=== PATIENT | male | born 1955 | race Caucasian/White ===

== ENCOUNTER 2020-11-24 10:50 | Inpatient (IN) ==
[2020-11-24] MEDS ORDERED: SODIUM CHLORIDE 0.9% 1,000 ML IV STA (11:23)
[2020-11-24] MEDS ORDERED: HEPARIN 1,000 UNIT/1 ML VIAL IV STA (11:32)
[2020-11-24] MEDS ORDERED: HEPARIN 5,000 UNIT/1 ML VIAL ONE ×2 (11:46→14:37)
[2020-11-24 11:57] LABS: INR 1.4; PT Patient Result 14.6 SECS (9.8-11.9)
[2020-11-24 12:16] LABS: Alanine Aminotransferase 13 U/L (16-61); Albumin 3.5 G/DL (3.4-5.0); Alkaline Phosphatase 130 U/L (45-117); Aspartate Amino Transferase 44 U/L (0-37); Blood Urea Nitrogen 8 MG/DL (7-18); Calcium 10.8 MG/DL (8.5-10.1); Carbon Dioxide 23 MMOL/L (21-32); Estimated Glom Filtration Rate 71 ML/MIN; Glucose 184 MG/DL (74-106); Osmolality,Calculated 260.9 MOS/KG (273-304); Potassium 4.1 MMOL/L (3.5-5.1); Sodium 129 MMOL/L (136-145); Total Protein 6.9 G/DL (6.4-8.3)
[2020-11-24 12:32] LABS: Basophils % 0.2 % (0.0-0.8); Eosinophils % 0.1 % (0.00-10.9); Hematocrit 54.6 VOL% (42.0-52.0); Immature Granulocytes % 0.8 %; Immature Granulocytes Absolute 0.14 #; Lymphocytes # 1.1 10*3/uL (1.4-4.0); Mean Corpuscular HGB Conc 35.3 GM/DL (32-36); Mean Corpuscular Volume 100.9 FL (87-102); Mean Platelet Volume 10.3 FL (9.6-12.0); Monocytes % 10.7 % (1.7-12.7); NRBC # 0.04 10*3/uL; Neutrophils % 82.2 % (38.7-73.9); Platelet Count 183 T/CUMM (130-400); Red Blood Count 5.41 MC/CUMM (3.8-5.5); Red Cell Distribution Width 14.3 % (9.3-17.3); White Blood Count 18.5 T/CUMM (4-12)
[2020-11-24 12:36] LABS: Hemoglobin 19.3 GM/DL (14.0-18.0)
[2020-11-24] MEDS ORDERED: FAMOTIDINE 20 MG TABLET PO STA (13:13)
[2020-11-24] MEDS ORDERED: ALBUTEROL 2.5 MG/3 ML NEB RESP TX STA (13:13)
[2020-11-24] MEDS ORDERED: ceFAZolin 2,000 MG in SODIUM CHLORIDE 0.9% 100 ML IV STA (13:26)
[2020-11-24] MEDS ORDERED: ACETAMINOPHEN 325 MG TABLET PO PRN (13:30)
[2020-11-24] MEDS ORDERED: ONDANSETRON 4 MG/2 ML VIAL IV PRN (13:30)
[2020-11-24] MEDS ORDERED: fentaNYL 100 MCG/2 ML VIAL ONE (14:18)
[2020-11-24] MEDS ORDERED: LIDOCAINE 2% 5 ML VIAL ONE (14:21)
[2020-11-24] MEDS ORDERED: ROCURONIUM 50 MG/5 ML VIAL IV ONE (14:21)
[2020-11-24] MEDS ORDERED: ETOMIDATE 40 MG/20 ML VIAL IV ONE ×2 (14:21→17:13)
[2020-11-24] MEDS ORDERED: ceFAZolin 1,000 MG VIAL ONE (14:25)
[2020-11-24] MEDS ORDERED: PHENYLEPHRINE 10 MG/1 ML VIAL IV ONE ×2 (15:13→15:18)
[2020-11-24] MEDS ORDERED: TISSUE ADHESIVE 1 EACH APPLICATOR TOP ONE (16:15)
[2020-11-24] MEDS ORDERED: ONDANSETRON 4 MG/2 ML VIAL ONE (16:24)
[2020-11-24] MEDS ORDERED: GLYCOPYRROLATE 0.4 MG/2 ML VIAL ONE (16:24)
[2020-11-24] MEDS ORDERED: NEOSTIGMINE 10 MG/10 ML VIAL ONE (16:24)
[2020-11-24] MEDS ORDERED: SEVOFLURANE 1 UNIT/15 MINUTE INH ONE ×9 (16:24→17:13)
[2020-11-24] MEDS ORDERED: LACTATED RINGERS 1,000 ML IV ONE (16:25)
[2020-11-24] MEDS ORDERED: SODIUM CHLORIDE 0.9% 250 ML IV ONE (16:25)
[2020-11-24] MEDS ORDERED: HEPARIN 10,000 UNIT/10 ML VIAL ONE (16:26)
[2020-11-24] MEDS: LACTATED RINGERS 1,000 ML IV SCH (17:43)
[2020-11-24 18:29] LABS: Basophils % 0.2 % (0.0-0.8); Eosinophils % 0.1 % (0.00-10.9); Hematocrit 53.7 VOL% (42.0-52.0); Hemoglobin 18.5 GM/DL (14.0-18.0); Immature Granulocytes % 0.7 %; Lymphocytes # 1.6 10*3/uL (1.4-4.0); Lymphocytes % 10.7 % (21.2-54.2); Mean Corpuscular HGB Conc 34.5 GM/DL (32-36); Mean Corpuscular Volume 101.7 FL (87-102); Mean Platelet Volume 10.5 FL (9.6-12.0); Monocytes % 8.9 % (1.7-12.7); NRBC # 0.03 10*3/uL; Neutrophils % 79.4 % (38.7-73.9); Platelet Count 177 T/CUMM (130-400); Red Blood Count 5.28 MC/CUMM (3.8-5.5); Red Cell Distribution Width 14.4 % (9.3-17.3); White Blood Count 15.2 T/CUMM (4-12)
[2020-11-24] MEDS: ALUMINUM/MAGNES/SIMETH MAX STR 30 ML UDCUP PO PRN (20:47)
[2020-11-25] MEDS: LACTATED RINGERS 1,000 ML IV SCH ×5 (01:57→19:03)
[2020-11-25 06:00] LABS: Basophils % 0.2 % (0.0-0.8); Hematocrit 52.1 VOL% (42.0-52.0); Immature Granulocytes % 0.7 %; Immature Granulocytes Absolute 0.11 #; Lymphocytes # 1.6 10*3/uL (1.4-4.0); Lymphocytes % 10.5 % (21.2-54.2); Mean Corpuscular HGB Conc 34.5 GM/DL (32-36); Mean Corpuscular Volume 102.8 FL (87-102); Monocytes % 9.3 % (1.7-12.7); Neutrophils % 79.3 % (38.7-73.9); Platelet Count 121 T/CUMM (130-400); Red Blood Count 5.07 MC/CUMM (3.8-5.5); Red Cell Distribution Width 14.4 % (9.3-17.3); White Blood Count 15.1 T/CUMM (4-12)
[2020-11-25 06:19] LABS: Macrocytosis Slight
[2020-11-25 06:20] LABS: Hypochromasia 1+; Platelet Estimate Decreased
[2020-11-25 06:22] LABS: Calcium 8.2 MG/DL (8.5-10.1); Osmolality,Calculated 261.7 MOS/KG (273-304); Potassium 4.2 MMOL/L (3.5-5.1)
[2020-11-25] MEDS: ASPIRIN CHEW 81 MG TABLET PO SCH (08:10)
[2020-11-25] MEDS ORDERED: CLOPIDOGREL 75 MG TABLET PO SCH ×2 (09:00→10:00)
[2020-11-25] MEDS ORDERED: PANTOPRAZOLE 40 MG TABLET PO SCH ×2 (09:00→10:00)
[2020-11-25] MEDS: ROSUVASTATIN 10 MG TABLET PO SCH (10:24)
[2020-11-25] MEDS: METOPROLOL TARTRATE 25 MG TABLET PO SCH ×2 (10:24→20:51)
[2020-11-25] MEDS: cilostazoL 100 MG TABLET PO SCH ×2 (10:24→20:51)
[2020-11-25] MEDS: ENOXAPARIN 40 MG/0.4 ML SYRINGE SUBCUT SCH (10:24)
[2020-11-25] MEDS: ALUMINUM/MAGNES/SIMETH MAX STR 30 ML UDCUP PO PRN ×2 (12:00→20:53)
[2020-11-26] MEDS: LACTATED RINGERS 1,000 ML IV SCH (05:09)
[2020-11-26] MEDS: ALUMINUM/MAGNES/SIMETH MAX STR 30 ML UDCUP PO PRN (07:33)
[2020-11-26] MEDS: PANTOPRAZOLE 40 MG TABLET PO SCH (10:34)
[2020-11-26] MEDS: ENOXAPARIN 40 MG/0.4 ML SYRINGE SUBCUT SCH (10:34)
[2020-11-26] MEDS: cilostazoL 100 MG TABLET PO SCH ×2 (10:35→20:17)
[2020-11-26] MEDS: ASPIRIN CHEW 81 MG TABLET PO SCH (10:35)
[2020-11-26] MEDS: ROSUVASTATIN 10 MG TABLET PO SCH (10:35)
[2020-11-26] MEDS: CLOPIDOGREL 75 MG TABLET PO SCH (10:35)
[2020-11-26] MEDS: METOPROLOL TARTRATE 25 MG TABLET PO SCH ×2 (10:35→20:17)
[2020-11-27] MEDS: CLOPIDOGREL 75 MG TABLET PO SCH (10:24)
[2020-11-27] MEDS: METOPROLOL TARTRATE 25 MG TABLET PO SCH ×2 (10:24→20:46)
[2020-11-27] MEDS: ASPIRIN CHEW 81 MG TABLET PO SCH (10:24)
[2020-11-27] MEDS: cilostazoL 100 MG TABLET PO SCH ×2 (10:24→20:46)
[2020-11-27] MEDS: PANTOPRAZOLE 40 MG TABLET PO SCH (10:25)
[2020-11-27] MEDS: ENOXAPARIN 40 MG/0.4 ML SYRINGE SUBCUT SCH (10:27)
[2020-11-27] MEDS: ROSUVASTATIN 10 MG TABLET PO SCH (10:32)
[2020-11-27] MEDS: HYDROmorphone 2 MG/1 ML VIAL IV PRN (15:50)
[2020-11-28] MEDS: cilostazoL 100 MG TABLET PO SCH ×2 (08:14→20:44)
[2020-11-28] MEDS: CLOPIDOGREL 75 MG TABLET PO SCH (08:14)
[2020-11-28] MEDS: ASPIRIN CHEW 81 MG TABLET PO SCH (08:14)
[2020-11-28] MEDS: ROSUVASTATIN 10 MG TABLET PO SCH (08:14)
[2020-11-28] MEDS: METOPROLOL TARTRATE 25 MG TABLET PO SCH ×2 (08:14→20:44)
[2020-11-28] MEDS: PANTOPRAZOLE 40 MG TABLET PO SCH (08:14)
[2020-11-28] MEDS: ENOXAPARIN 40 MG/0.4 ML SYRINGE SUBCUT SCH (10:23)
[2020-11-28] MEDS: HYDROmorphone 2 MG/1 ML VIAL IV PRN (20:45)
[2020-11-29] MEDS: CLOPIDOGREL 75 MG TABLET PO SCH (08:36)
[2020-11-29] MEDS: ASPIRIN CHEW 81 MG TABLET PO SCH (08:36)
[2020-11-29] MEDS: PANTOPRAZOLE 40 MG TABLET PO SCH (08:36)
[2020-11-29] MEDS: METOPROLOL TARTRATE 25 MG TABLET PO SCH ×2 (08:36→20:51)
[2020-11-29] MEDS: ROSUVASTATIN 10 MG TABLET PO SCH (08:36)
[2020-11-29] MEDS: cilostazoL 100 MG TABLET PO SCH ×2 (08:36→20:50)
[2020-11-29] MEDS: ENOXAPARIN 40 MG/0.4 ML SYRINGE SUBCUT SCH (12:19)
[2020-11-30] MEDS: PANTOPRAZOLE 40 MG TABLET PO SCH (08:50)
[2020-11-30] MEDS: ROSUVASTATIN 10 MG TABLET PO SCH (08:50)
[2020-11-30] MEDS: CLOPIDOGREL 75 MG TABLET PO SCH (08:51)
[2020-11-30] MEDS: METOPROLOL TARTRATE 25 MG TABLET PO SCH ×2 (08:51→21:40)
[2020-11-30] MEDS: ASPIRIN CHEW 81 MG TABLET PO SCH (08:51)
[2020-11-30] MEDS: cilostazoL 100 MG TABLET PO SCH ×2 (08:51→21:40)
[2020-11-30 10:31] LABS: Hematocrit 42.5 VOL% (42.0-52.0); Hemoglobin 14.9 GM/DL (14.0-18.0)
[2020-11-30 10:54] LABS: Basophils % 0.2 % (0.0-0.8); Eosinophils % 0.1 % (0.00-10.9); Hematocrit 41.8 VOL% (42.0-52.0); Immature Granulocytes Absolute 0.13 #; Lymphocytes # 1.1 10*3/uL (1.4-4.0); Lymphocytes % 8.4 % (21.2-54.2); Mean Corpuscular HGB Conc 35.9 GM/DL (32-36); Mean Corpuscular Volume 99.3 FL (87-102); Mean Platelet Volume 11.1 FL (9.6-12.0); Monocytes % 8.6 % (1.7-12.7); Neutrophils % 81.7 % (38.7-73.9); Platelet Count 193 T/CUMM (130-400); Red Blood Count 4.21 MC/CUMM (3.8-5.5); Red Cell Distribution Width 13.2 % (9.3-17.3); White Blood Count 12.6 T/CUMM (4-12)
[2020-11-30 11:03] LABS: Calcium 8.6 MG/DL (8.5-10.1); Osmolality,Calculated 245.9 MOS/KG (273-304); Potassium 3.8 MMOL/L (3.5-5.1)
[2020-11-30] MEDS: ENOXAPARIN 40 MG/0.4 ML SYRINGE SUBCUT SCH (13:06)
[2020-12-01] MEDS: PANTOPRAZOLE 40 MG TABLET PO SCH (08:40)
[2020-12-01] MEDS: cilostazoL 100 MG TABLET PO SCH ×2 (08:40→22:06)
[2020-12-01] MEDS: METOPROLOL TARTRATE 25 MG TABLET PO SCH ×2 (08:41→22:06)
[2020-12-01] MEDS: ROSUVASTATIN 10 MG TABLET PO SCH (08:41)
[2020-12-01] MEDS: ASPIRIN CHEW 81 MG TABLET PO SCH (08:41)
[2020-12-01] MEDS: CLOPIDOGREL 75 MG TABLET PO SCH (08:41)
[2020-12-01] MEDS: DOCUSATE SODIUM 100 MG CAPSULE PO SCH (08:41)
[2020-12-01] MEDS: ENOXAPARIN 40 MG/0.4 ML SYRINGE SUBCUT SCH (12:27)
[2020-12-02] MEDS ORDERED: ceFAZolin 1,000 MG in SYRINGE 1 EACH IV ONE (06:00)
[2020-12-02 08:11] LABS: Calcium 8.2 MG/DL (8.5-10.1); Osmolality,Calculated 248.5 MOS/KG (273-304); Potassium 3.9 MMOL/L (3.5-5.1)
[2020-12-02] MEDS: ROSUVASTATIN 10 MG TABLET PO SCH (10:19)
[2020-12-02] MEDS: ASPIRIN CHEW 81 MG TABLET PO SCH (10:19)
[2020-12-02] MEDS: PANTOPRAZOLE 40 MG TABLET PO SCH (10:20)
[2020-12-02] MEDS: CLOPIDOGREL 75 MG TABLET PO SCH (10:20)
[2020-12-02] MEDS: METOPROLOL TARTRATE 25 MG TABLET PO SCH ×2 (10:20→20:06)
[2020-12-02] MEDS: cilostazoL 100 MG TABLET PO SCH ×2 (10:21→20:07)
[2020-12-02] MEDS: DOCUSATE SODIUM 100 MG CAPSULE PO SCH (10:24)
[2020-12-02] MEDS: SODIUM CHLOR 0.9% KCL 20 MEQ 20 MEQ/1,000 ML BAG IV SCH ×2 (12:25→21:52)
[2020-12-02 16:33] LABS: Calcium 8.1 MG/DL (8.5-10.1); Osmolality,Calculated 248.6 MOS/KG (273-304); Potassium 3.8 MMOL/L (3.5-5.1)
[2020-12-02] MEDS: ZINC OXIDE PASTE 113 GM TUBE TOP SCH (20:06)
[2020-12-03] MEDS: SODIUM CHLOR 0.9% KCL 20 MEQ 20 MEQ/1,000 ML BAG IV SCH ×2 (05:45→19:48)
[2020-12-03 05:50] LABS: Osmolality,Calculated 257.8 MOS/KG (273-304); Potassium 4.1 MMOL/L (3.5-5.1)
[2020-12-03] MEDS ORDERED: ceFAZolin 1,000 MG in SYRINGE 1 EACH IV ONE (08:45)
[2020-12-03] MEDS: ZINC OXIDE PASTE 113 GM TUBE TOP SCH ×2 (08:55→20:20)
[2020-12-03] MEDS: ASPIRIN CHEW 81 MG TABLET PO SCH (08:55)
[2020-12-03] MEDS: ROSUVASTATIN 10 MG TABLET PO SCH (08:55)
[2020-12-03] MEDS: METOPROLOL TARTRATE 25 MG TABLET PO SCH ×2 (08:55→20:20)
[2020-12-03] MEDS: cilostazoL 100 MG TABLET PO SCH ×2 (08:55→20:20)
[2020-12-03] MEDS: CLOPIDOGREL 75 MG TABLET PO SCH (08:55)
[2020-12-03] MEDS: DOCUSATE SODIUM 100 MG CAPSULE PO SCH (08:55)
[2020-12-03] MEDS: PANTOPRAZOLE 40 MG TABLET PO SCH (08:56)
[2020-12-03] MEDS ORDERED: LACTATED RINGERS 1,000 ML IV SCH (09:00)
[2020-12-03] MEDS ORDERED: MIDAZOLAM 2 MG/2 ML VIAL ONE (09:39)
[2020-12-03] MEDS ORDERED: LIDOCAINE 2% 5 ML VIAL ONE (09:39)
[2020-12-03] MEDS ORDERED: propofoL 200 MG/20 ML VIAL IV ONE (09:39)
[2020-12-03] MEDS ORDERED: fentaNYL 100 MCG/2 ML VIAL ONE (09:39)
[2020-12-03] MEDS ORDERED: DEXAMETHASONE 4 MG/1 ML VIAL ONE (09:43)
[2020-12-03] MEDS ORDERED: ROPIVACAINE 0.5% 30 ML VIAL ONE (09:43)
[2020-12-03] MEDS ORDERED: FAMOTIDINE 20 MG/2 ML VIAL IV ONE (10:07)
[2020-12-03] MEDS ORDERED: SUCCINYLCHOLINE 200 MG/10 ML VIAL ONE (10:10)
[2020-12-03] MEDS ORDERED: ETOMIDATE 40 MG/20 ML VIAL IV ONE (10:10)
[2020-12-03] MEDS ORDERED: KETOROLAC 30 MG/1 ML VIAL ONE (10:44)
[2020-12-03] MEDS ORDERED: SODIUM CHLORIDE 0.9% 250 ML IV ONE (10:45)
[2020-12-03] MEDS ORDERED: PHENYLEPHRINE 10 MG/1 ML VIAL IV ONE (10:46)
[2020-12-03] MEDS ORDERED: ONDANSETRON 4 MG/2 ML VIAL ONE (10:58)
[2020-12-03] MEDS ORDERED: SEVOFLURANE 1 UNIT/15 MINUTE INH ONE (11:34)
[2020-12-03] MEDS ORDERED: NALOXONE 0.4 MG/ML VIAL IV PRN (11:35)
[2020-12-03] MEDS: HYDROmorphone PCA 30 MG/30 ML SYRINGE IV SCH (13:08)
[2020-12-03] MEDS: KETOROLAC 10 MG TABLET PO SCH ×3 (13:29→23:30)
[2020-12-04] MEDS: SODIUM CHLOR 0.9% KCL 20 MEQ 20 MEQ/1,000 ML BAG IV SCH ×2 (05:14→21:30)
[2020-12-04] MEDS: KETOROLAC 10 MG TABLET PO SCH ×3 (05:15→17:45)
[2020-12-04 06:34] LABS: Basophils % 0.2 % (0.0-0.8); Eosinophils % 0.1 % (0.00-10.9); Hemoglobin 12.9 GM/DL (14.0-18.0); Immature Granulocytes % 1.2 %; Immature Granulocytes Absolute 0.19 #; Lymphocytes # 1.6 10*3/uL (1.4-4.0); Lymphocytes % 9.5 % (21.2-54.2); Mean Corpuscular HGB Conc 33.9 GM/DL (32-36); Mean Corpuscular Volume 103.3 FL (87-102); Mean Platelet Volume 9.8 FL (9.6-12.0); Monocytes % 9.5 % (1.7-12.7); Neutrophils % 79.5 % (38.7-73.9); Platelet Count 317 T/CUMM (130-400); Red Blood Count 3.68 MC/CUMM (3.8-5.5); Red Cell Distribution Width 13.8 % (9.3-17.3); White Blood Count 16.5 T/CUMM (4-12)
[2020-12-04 06:56] LABS: Calcium 7.8 MG/DL (8.5-10.1); Osmolality,Calculated 265.4 MOS/KG (273-304); Potassium 4.1 MMOL/L (3.5-5.1)
[2020-12-04] MEDS: ASPIRIN CHEW 81 MG TABLET PO SCH (08:59)
[2020-12-04] MEDS: DOCUSATE SODIUM 100 MG CAPSULE PO SCH (08:59)
[2020-12-04] MEDS: CLOPIDOGREL 75 MG TABLET PO SCH (09:00)
[2020-12-04] MEDS: PANTOPRAZOLE 40 MG TABLET PO SCH (09:00)
[2020-12-04] MEDS: METOPROLOL TARTRATE 25 MG TABLET PO SCH ×2 (09:00→21:30)
[2020-12-04] MEDS: ZINC OXIDE PASTE 113 GM TUBE TOP SCH ×2 (09:00→21:30)
[2020-12-04] MEDS: cilostazoL 100 MG TABLET PO SCH ×2 (09:00→21:30)
[2020-12-04] MEDS: ROSUVASTATIN 10 MG TABLET PO SCH (09:00)
[2020-12-04] MEDS: ENOXAPARIN 40 MG/0.4 ML SYRINGE SUBCUT SCH (12:00)
[2020-12-04] MEDS: HYDROmorphone PCA 30 MG/30 ML SYRINGE IV SCH (14:26)
[2020-12-05] MEDS: KETOROLAC 10 MG TABLET PO SCH ×4 (00:55→17:33)
[2020-12-05] MEDS: SODIUM CHLOR 0.9% KCL 20 MEQ 20 MEQ/1,000 ML BAG IV SCH (00:57)
[2020-12-05] MEDS: PANTOPRAZOLE 40 MG TABLET PO SCH (09:28)
[2020-12-05] MEDS: ASPIRIN CHEW 81 MG TABLET PO SCH (09:28)
[2020-12-05] MEDS: METOPROLOL TARTRATE 25 MG TABLET PO SCH ×2 (09:29→21:29)
[2020-12-05] MEDS: CLOPIDOGREL 75 MG TABLET PO SCH (09:29)
[2020-12-05] MEDS: ROSUVASTATIN 10 MG TABLET PO SCH (09:30)
[2020-12-05] MEDS: ZINC OXIDE PASTE 113 GM TUBE TOP SCH ×2 (09:30→22:46)
[2020-12-05] MEDS: cilostazoL 100 MG TABLET PO SCH ×2 (09:30→21:28)
[2020-12-05] MEDS: DOCUSATE SODIUM 100 MG CAPSULE PO SCH (09:30)
[2020-12-05] MEDS: ENOXAPARIN 40 MG/0.4 ML SYRINGE SUBCUT SCH (12:07)
[2020-12-05] MEDS: HYDROmorphone PCA 30 MG/30 ML SYRINGE IV SCH (13:57)
[2020-12-06] MEDS: KETOROLAC 10 MG TABLET PO SCH ×5 (00:53→23:15)
[2020-12-06] MEDS: SODIUM CHLOR 0.9% KCL 20 MEQ 20 MEQ/1,000 ML BAG IV SCH (06:31)
[2020-12-06] MEDS ORDERED: HYDROmorphone 2 MG/1 ML VIAL IV PRN (08:50)
[2020-12-06] MEDS: ASPIRIN CHEW 81 MG TABLET PO SCH (10:06)
[2020-12-06] MEDS: PANTOPRAZOLE 40 MG TABLET PO SCH (10:07)
[2020-12-06] MEDS: CLOPIDOGREL 75 MG TABLET PO SCH (10:07)
[2020-12-06] MEDS: METOPROLOL TARTRATE 25 MG TABLET PO SCH ×2 (10:07→20:05)
[2020-12-06] MEDS: cilostazoL 100 MG TABLET PO SCH ×2 (10:07→20:04)
[2020-12-06] MEDS: DOCUSATE SODIUM 100 MG CAPSULE PO SCH (10:07)
[2020-12-06] MEDS: ROSUVASTATIN 10 MG TABLET PO SCH (10:07)
[2020-12-06] MEDS: ZINC OXIDE PASTE 113 GM TUBE TOP SCH ×2 (10:08→20:05)
[2020-12-06] MEDS: PIPERACILLIN/TAZOBACTAM 3,375 MG in SODIUM CHLORIDE 0.9% 100 ML IV SCH ×2 (11:01→17:18)
[2020-12-06] MEDS: ENOXAPARIN 40 MG/0.4 ML SYRINGE SUBCUT SCH (11:50)
[2020-12-06] MEDS: HYDROmorphone PCA 30 MG/30 ML SYRINGE IV SCH (12:24)
[2020-12-07] MEDS: PIPERACILLIN/TAZOBACTAM 3,375 MG in SODIUM CHLORIDE 0.9% 100 ML IV SCH ×3 (00:48→17:10)
[2020-12-07] MEDS: KETOROLAC 10 MG TABLET PO SCH ×4 (05:37→23:15)
[2020-12-07 06:21] LABS: Basophils % 0.2 % (0.0-0.8); Eosinophils % 0.2 % (0.00-10.9); Hematocrit 32.2 VOL% (42.0-52.0); Hemoglobin 11.3 GM/DL (14.0-18.0); Immature Granulocytes % 1.1 %; Immature Granulocytes Absolute 0.14 #; Lymphocytes % 7.6 % (21.2-54.2); Mean Corpuscular HGB Conc 35.1 GM/DL (32-36); Mean Corpuscular Volume 98.5 FL (87-102); Mean Platelet Volume 9.5 FL (9.6-12.0); Neutrophils % 82.9 % (38.7-73.9); Platelet Count 394 T/CUMM (130-400); Red Blood Count 3.27 MC/CUMM (3.8-5.5); Red Cell Distribution Width 13.2 % (9.3-17.3); White Blood Count 12.8 T/CUMM (4-12)
[2020-12-07 06:48] LABS: Calcium 7.5 MG/DL (8.5-10.1); Osmolality,Calculated 259.8 MOS/KG (273-304); Potassium 3.7 MMOL/L (3.5-5.1)
[2020-12-07] MEDS: CLOPIDOGREL 75 MG TABLET PO SCH (09:39)
[2020-12-07] MEDS: cilostazoL 100 MG TABLET PO SCH ×2 (09:39→20:23)
[2020-12-07] MEDS: METOPROLOL TARTRATE 25 MG TABLET PO SCH ×2 (09:39→20:23)
[2020-12-07] MEDS: ASPIRIN CHEW 81 MG TABLET PO SCH (09:39)
[2020-12-07] MEDS: ROSUVASTATIN 10 MG TABLET PO SCH (09:39)
[2020-12-07] MEDS: DOCUSATE SODIUM 100 MG CAPSULE PO SCH (09:39)
[2020-12-07] MEDS: PANTOPRAZOLE 40 MG TABLET PO SCH (09:39)
[2020-12-07] MEDS: ENOXAPARIN 40 MG/0.4 ML SYRINGE SUBCUT SCH (12:09)
[2020-12-07] MEDS: ZINC OXIDE PASTE 113 GM TUBE TOP SCH ×2 (12:11→20:23)
[2020-12-08] MEDS: PIPERACILLIN/TAZOBACTAM 3,375 MG in SODIUM CHLORIDE 0.9% 100 ML IV SCH ×3 (01:15→16:33)
[2020-12-08] MEDS: KETOROLAC 10 MG TABLET PO SCH (05:30)
[2020-12-08] MEDS: CLOPIDOGREL 75 MG TABLET PO SCH (09:42)
[2020-12-08] MEDS: DOCUSATE SODIUM 100 MG CAPSULE PO SCH (09:42)
[2020-12-08] MEDS: PANTOPRAZOLE 40 MG TABLET PO SCH (09:42)
[2020-12-08] MEDS: METOPROLOL TARTRATE 25 MG TABLET PO SCH ×2 (09:45→20:27)
[2020-12-08] MEDS: cilostazoL 100 MG TABLET PO SCH ×2 (09:46→20:27)
[2020-12-08] MEDS: ASPIRIN CHEW 81 MG TABLET PO SCH (09:46)
[2020-12-08] MEDS: ZINC OXIDE PASTE 113 GM TUBE TOP SCH ×2 (09:47→20:27)
[2020-12-08] MEDS: ROSUVASTATIN 10 MG TABLET PO SCH (09:47)
[2020-12-08] MEDS: ENOXAPARIN 40 MG/0.4 ML SYRINGE SUBCUT SCH (11:20)
[2020-12-09] MEDS: PIPERACILLIN/TAZOBACTAM 3,375 MG in SODIUM CHLORIDE 0.9% 100 ML IV SCH ×3 (02:22→17:13)
[2020-12-09 10:07] LABS: Basophils % 0.3 % (0.0-0.8); Eosinophils % 0.2 % (0.00-10.9); Immature Granulocytes % 0.5 %; Immature Granulocytes Absolute 0.06 #; Lymphocytes # 1.2 10*3/uL (1.4-4.0); Lymphocytes % 10.7 % (21.2-54.2); Mean Corpuscular HGB Conc 34.2 GM/DL (32-36); Mean Corpuscular Volume 101.3 FL (87-102); Mean Platelet Volume 9.3 FL (9.6-12.0); Monocytes % 7.6 % (1.7-12.7); Neutrophils % 80.7 % (38.7-73.9); Platelet Count 552 T/CUMM (130-400); Red Blood Count 3.75 MC/CUMM (3.8-5.5); Red Cell Distribution Width 14.1 % (9.3-17.3); White Blood Count 11.5 T/CUMM (4-12)
[2020-12-09] MEDS: cilostazoL 100 MG TABLET PO SCH ×2 (10:32→21:11)
[2020-12-09] MEDS: CLOPIDOGREL 75 MG TABLET PO SCH (10:32)
[2020-12-09] MEDS: DOCUSATE SODIUM 100 MG CAPSULE PO SCH (10:32)
[2020-12-09] MEDS: METOPROLOL TARTRATE 25 MG TABLET PO SCH ×2 (10:32→21:11)
[2020-12-09] MEDS: PANTOPRAZOLE 40 MG TABLET PO SCH (10:32)
[2020-12-09] MEDS: ASPIRIN CHEW 81 MG TABLET PO SCH (10:32)
[2020-12-09] MEDS: ROSUVASTATIN 10 MG TABLET PO SCH (10:32)
[2020-12-09] MEDS: ZINC OXIDE PASTE 113 GM TUBE TOP SCH ×2 (10:33→21:12)
[2020-12-09] MEDS: ENOXAPARIN 40 MG/0.4 ML SYRINGE SUBCUT SCH (10:33)
[2020-12-09 10:44] LABS: Calcium 8.1 MG/DL (8.5-10.1); Osmolality,Calculated 263.4 MOS/KG (273-304); Potassium 3.9 MMOL/L (3.5-5.1)
[2020-12-10] MEDS: PIPERACILLIN/TAZOBACTAM 3,375 MG in SODIUM CHLORIDE 0.9% 100 ML IV SCH ×3 (00:30→17:43)
[2020-12-10] MEDS ORDERED: LIDOCAINE 2% 5 ML VIAL ONE (09:32)
[2020-12-10] MEDS ORDERED: propofoL 200 MG/20 ML VIAL IV ONE ×2 (09:32→11:55)
[2020-12-10] MEDS ORDERED: fentaNYL 100 MCG/2 ML VIAL ONE (09:33)
[2020-12-10] MEDS ORDERED: MIDAZOLAM 2 MG/2 ML VIAL ONE (09:33)
[2020-12-10] MEDS ORDERED: SUCCINYLCHOLINE 200 MG/10 ML VIAL ONE (09:40)
[2020-12-10] MEDS: METOPROLOL TARTRATE 25 MG TABLET PO SCH ×2 (09:59→21:17)
[2020-12-10] MEDS: CLOPIDOGREL 75 MG TABLET PO SCH (10:29)
[2020-12-10] MEDS: ASPIRIN CHEW 81 MG TABLET PO SCH (10:29)
[2020-12-10] MEDS: DOCUSATE SODIUM 100 MG CAPSULE PO SCH (10:29)
[2020-12-10] MEDS: ROSUVASTATIN 10 MG TABLET PO SCH (10:29)
[2020-12-10] MEDS: ZINC OXIDE PASTE 113 GM TUBE TOP SCH ×2 (10:30→21:17)
[2020-12-10] MEDS: PANTOPRAZOLE 40 MG TABLET PO SCH (10:30)
[2020-12-10] MEDS: ENOXAPARIN 40 MG/0.4 ML SYRINGE SUBCUT SCH (10:30)
[2020-12-10] MEDS: cilostazoL 100 MG TABLET PO SCH ×2 (10:30→21:17)
[2020-12-10] MEDS ORDERED: DEXAMETHASONE 4 MG/1 ML VIAL ONE (10:46)
[2020-12-10] MEDS ORDERED: BUPIVACAINE 0.5% 50 ML VIAL ONE (10:46)
[2020-12-10] MEDS ORDERED: ETOMIDATE 40 MG/20 ML VIAL IV ONE (11:55)
[2020-12-10] MEDS ORDERED: SEVOFLURANE 1 UNIT/15 MINUTE INH ONE ×5 (11:56→12:28)
[2020-12-10] MEDS ORDERED: PHENYLEPHRINE DRIP 20 MG/250 ML PREMIX IV ONE (12:08)
[2020-12-10] MEDS ORDERED: NEOSTIGMINE 10 MG/10 ML VIAL ONE (12:11)
[2020-12-10] MEDS ORDERED: GLYCOPYRROLATE 0.4 MG/2 ML VIAL ONE (12:11)
[2020-12-10] MEDS ORDERED: NALOXONE 0.4 MG/ML VIAL IV PRN (12:23)
[2020-12-10] MEDS ORDERED: HYDROmorphone PCA 30 MG/30 ML SYRINGE IV SCH (12:30)
[2020-12-11] MEDS: PIPERACILLIN/TAZOBACTAM 3,375 MG in SODIUM CHLORIDE 0.9% 100 ML IV SCH ×3 (01:35→18:07)
[2020-12-11 05:22] LABS: Basophils % 0.3 % (0.0-0.8); Eosinophils % 0.3 % (0.00-10.9); Hematocrit 34.8 VOL% (42.0-52.0); Hemoglobin 11.7 GM/DL (14.0-18.0); Immature Granulocytes % 0.8 %; Immature Granulocytes Absolute 0.09 #; Lymphocytes # 2.7 10*3/uL (1.4-4.0); Lymphocytes % 22.6 % (21.2-54.2); Mean Corpuscular HGB Conc 33.6 GM/DL (32-36); Mean Corpuscular Volume 102.4 FL (87-102); Mean Platelet Volume 9.2 FL (9.6-12.0); Monocytes % 9.7 % (1.7-12.7); Neutrophils % 66.3 % (38.7-73.9); Platelet Count 542 T/CUMM (130-400); White Blood Count 11.9 T/CUMM (4-12)
[2020-12-11 05:42] LABS: Calcium 8.1 MG/DL (8.5-10.1); Osmolality,Calculated 266.2 MOS/KG (273-304); Potassium 4.2 MMOL/L (3.5-5.1)
[2020-12-11] MEDS: cilostazoL 100 MG TABLET PO SCH (09:32)
[2020-12-11] MEDS: METOPROLOL TARTRATE 25 MG TABLET PO SCH ×2 (09:32→20:41)
[2020-12-11] MEDS: ROSUVASTATIN 10 MG TABLET PO SCH (09:32)
[2020-12-11] MEDS: CLOPIDOGREL 75 MG TABLET PO SCH (09:32)
[2020-12-11] MEDS: ASPIRIN CHEW 81 MG TABLET PO SCH (09:32)
[2020-12-11] MEDS: DOCUSATE SODIUM 100 MG CAPSULE PO SCH (09:32)
[2020-12-11] MEDS: PANTOPRAZOLE 40 MG TABLET PO SCH (10:28)
[2020-12-11] MEDS: ZINC OXIDE PASTE 113 GM TUBE TOP SCH ×2 (10:28→20:41)
[2020-12-11] MEDS: ENOXAPARIN 40 MG/0.4 ML SYRINGE SUBCUT SCH (10:29)
[2020-12-12] MEDS: PIPERACILLIN/TAZOBACTAM 3,375 MG in SODIUM CHLORIDE 0.9% 100 ML IV SCH ×3 (00:32→19:00)
[2020-12-12] MEDS: PANTOPRAZOLE 40 MG TABLET PO SCH (09:31)
[2020-12-12] MEDS: DOCUSATE SODIUM 100 MG CAPSULE PO SCH (09:31)
[2020-12-12] MEDS: ASPIRIN CHEW 81 MG TABLET PO SCH (09:31)
[2020-12-12] MEDS: METOPROLOL TARTRATE 25 MG TABLET PO SCH ×2 (09:31→20:58)
[2020-12-12] MEDS: ROSUVASTATIN 10 MG TABLET PO SCH (09:31)
[2020-12-12] MEDS: CLOPIDOGREL 75 MG TABLET PO SCH (09:32)
[2020-12-12] MEDS: ZINC OXIDE PASTE 113 GM TUBE TOP SCH ×2 (09:36→20:58)
[2020-12-12] MEDS: ENOXAPARIN 40 MG/0.4 ML SYRINGE SUBCUT SCH (11:53)
[2020-12-13] MEDS: PIPERACILLIN/TAZOBACTAM 3,375 MG in SODIUM CHLORIDE 0.9% 100 ML IV SCH (01:10)
[2020-12-13] MEDS ORDERED: FUROSEMIDE 20 MG TABLET PO ONE (07:30)
[2020-12-13] MEDS: ASPIRIN CHEW 81 MG TABLET PO SCH (09:01)
[2020-12-13] MEDS: ROSUVASTATIN 10 MG TABLET PO SCH (09:01)
[2020-12-13] MEDS: CLOPIDOGREL 75 MG TABLET PO SCH (09:01)
[2020-12-13] MEDS: DOCUSATE SODIUM 100 MG CAPSULE PO SCH (09:01)
[2020-12-13] MEDS: METOPROLOL TARTRATE 25 MG TABLET PO SCH ×2 (09:01→20:53)
[2020-12-13] MEDS: ZINC OXIDE PASTE 113 GM TUBE TOP SCH ×2 (09:02→23:25)
[2020-12-13] MEDS: PANTOPRAZOLE 40 MG TABLET PO SCH (09:02)
[2020-12-13] MEDS: ENOXAPARIN 40 MG/0.4 ML SYRINGE SUBCUT SCH (10:08)
[2020-12-14] MEDS: PANTOPRAZOLE 40 MG TABLET PO SCH (08:37)
[2020-12-14] MEDS: ROSUVASTATIN 10 MG TABLET PO SCH (08:37)
[2020-12-14] MEDS: CLOPIDOGREL 75 MG TABLET PO SCH (08:37)
[2020-12-14] MEDS: METOPROLOL TARTRATE 25 MG TABLET PO SCH ×2 (08:37→20:12)
[2020-12-14] MEDS: DOCUSATE SODIUM 100 MG CAPSULE PO SCH (08:37)
[2020-12-14] MEDS: ASPIRIN CHEW 81 MG TABLET PO SCH (08:37)
[2020-12-14] MEDS: ZINC OXIDE PASTE 113 GM TUBE TOP SCH ×2 (08:39→20:12)
[2020-12-14] MEDS: ENOXAPARIN 40 MG/0.4 ML SYRINGE SUBCUT SCH (10:20)
[2020-12-15] MEDS: ASPIRIN CHEW 81 MG TABLET PO SCH (08:27)
[2020-12-15] MEDS: DOCUSATE SODIUM 100 MG CAPSULE PO SCH (08:28)
[2020-12-15] MEDS: METOPROLOL TARTRATE 25 MG TABLET PO SCH ×2 (08:28→20:33)
[2020-12-15] MEDS: CLOPIDOGREL 75 MG TABLET PO SCH (08:28)
[2020-12-15] MEDS: PANTOPRAZOLE 40 MG TABLET PO SCH (08:28)
[2020-12-15] MEDS: ZINC OXIDE PASTE 113 GM TUBE TOP SCH ×2 (08:28→20:55)
[2020-12-15] MEDS: ROSUVASTATIN 10 MG TABLET PO SCH (08:28)
[2020-12-15] MEDS: ENOXAPARIN 40 MG/0.4 ML SYRINGE SUBCUT SCH (10:45)
[2020-12-16] MEDS: DOCUSATE SODIUM 100 MG CAPSULE PO SCH (09:05)
[2020-12-16] MEDS: ZINC OXIDE PASTE 113 GM TUBE TOP SCH ×2 (09:05→22:11)
[2020-12-16] MEDS: PANTOPRAZOLE 40 MG TABLET PO SCH (09:05)
[2020-12-16] MEDS: METOPROLOL TARTRATE 25 MG TABLET PO SCH ×2 (09:06→22:11)
[2020-12-16] MEDS: CLOPIDOGREL 75 MG TABLET PO SCH (09:06)
[2020-12-16] MEDS: ROSUVASTATIN 10 MG TABLET PO SCH (09:06)
[2020-12-16] MEDS: ASPIRIN CHEW 81 MG TABLET PO SCH (09:06)
[2020-12-16] MEDS: ENOXAPARIN 40 MG/0.4 ML SYRINGE SUBCUT SCH (10:39)
[2020-12-16] MEDS: diphenhydrAMINE CAP 25 MG CAPSULE PO PRN (22:11)
[2020-12-17] MEDS: METOPROLOL TARTRATE 25 MG TABLET PO SCH ×2 (09:26→21:31)
[2020-12-17] MEDS: ASPIRIN CHEW 81 MG TABLET PO SCH (09:27)
[2020-12-17] MEDS: CLOPIDOGREL 75 MG TABLET PO SCH (09:27)
[2020-12-17] MEDS: ZINC OXIDE PASTE 113 GM TUBE TOP SCH ×2 (09:27→21:36)
[2020-12-17] MEDS: DOCUSATE SODIUM 100 MG CAPSULE PO SCH (09:27)
[2020-12-17] MEDS: PANTOPRAZOLE 40 MG TABLET PO SCH (09:27)
[2020-12-17] MEDS: ROSUVASTATIN 10 MG TABLET PO SCH (09:27)
[2020-12-17] MEDS: ENOXAPARIN 40 MG/0.4 ML SYRINGE SUBCUT SCH (10:45)
[2020-12-17] MEDS: diphenhydrAMINE CAP 25 MG CAPSULE PO PRN (21:31)
[2020-12-18 06:22] LABS: Basophils % 0.3 % (0.0-0.8); Eosinophils # 0.1 10*3/uL (0.0-0.87); Eosinophils % 1.1 % (0.00-10.9); Hemoglobin 10.9 GM/DL (14.0-18.0); Immature Granulocytes % 0.3 %; Immature Granulocytes Absolute 0.02 #; Lymphocytes # 1.6 10*3/uL (1.4-4.0); Lymphocytes % 26.1 % (21.2-54.2); Mean Corpuscular Volume 102.2 FL (87-102); Mean Platelet Volume 10.1 FL (9.6-12.0); Monocytes % 13.7 % (1.7-12.7); Neutrophils % 58.5 % (38.7-73.9); Platelet Count 311 T/CUMM (130-400); Red Blood Count 3.23 MC/CUMM (3.8-5.5); Red Cell Distribution Width 13.9 % (9.3-17.3); White Blood Count 6.1 T/CUMM (4-12)
[2020-12-18] MEDS: DOCUSATE SODIUM 100 MG CAPSULE PO SCH (10:17)
[2020-12-18] MEDS: ASPIRIN CHEW 81 MG TABLET PO SCH (10:17)
[2020-12-18] MEDS: CLOPIDOGREL 75 MG TABLET PO SCH (10:17)
[2020-12-18] MEDS: ROSUVASTATIN 10 MG TABLET PO SCH (10:18)
[2020-12-18] MEDS: ZINC OXIDE PASTE 113 GM TUBE TOP SCH (10:18)
[2020-12-18] MEDS: METOPROLOL TARTRATE 25 MG TABLET PO SCH (10:18)
[2020-12-18] MEDS: PANTOPRAZOLE 40 MG TABLET PO SCH (10:18)
[2020-12-18] MEDS: ENOXAPARIN 40 MG/0.4 ML SYRINGE SUBCUT SCH (10:19)
[2020-12-18 11:53] VITALS: BP 121/80
== END 2020-12-18 13:15 | disposition home health service (06) | DRG 271 ==
LOC: N.ED 10:50 → N.EDINP 13:30 → N.3E 18:05
PROVIDERS: ADMIT Surgery; ATTEND Surgery